=== PATIENT | male | born 1985 | race Caucasian/White ===

== ENCOUNTER 2017-03-11 20:03 | Emergency (ER) | payer MEDICAID ==
[2017-03-11 20:46] VITALS: BP 143/102
== END 2017-03-11 20:56 | disposition left against medical advice (07) ==
LOC: DL.ED 20:03
DX: Z53.21 Procedure and treatment not carried out due to patient leaving prior to being seen by health care provider (principal)

== ENCOUNTER 2017-03-12 14:31 | Emergency (ER) | payer MEDICAID ==
[2017-03-12 14:57] VITALS: BP 145/83
--- NOTE | 2017-03-12 15:21 | EDM.PDOC ---
ED HPI GENERAL MEDICAL PROBLEM - General Chief Complaint: General Stated Complaint: RASH, PAIN MID-SECTION Time Seen by Provider: 03/12/17 15:09 Source of Information: Reports: Patient History Limitations: Reports: No Limitations - History of Present Illness INITIAL COMMENTS - FREE TEXT/NARRATIVE: This 31 yo male patient reports to the ED with a 1 day history of increased upper abdominal pain, nausea/vomiting, and a diffuse rash on his extremities. The patient reports his symptoms started after eating pizza for breakfast yesterday morning. The patient reports he was seen for similar symptoms in June and was transferred to [facility] in [place]. The patient reports he was kept in the hospital for 4 days on IV medications. The patient reports he was told that the medication was a temporary fix. The patient reports he has been doing well until yesterday. The patient also reports that his throat is sore ( may be from vomiting). Onset Date: 03/11/17 Duration: Constant, Getting Worse Location: Reports: Abdomen Quality: Reports: Ache, Sharp, Stabbing Severity: Moderate Improves with: Reports: None Worsens with: Reports: None Associated Symptoms: Reports: No Other Symptoms - Related Data Allergies Allergy/AdvReac Type Severity Reaction Status Date / Time No Known Allergies Allergy Verified 03/12/17 14:36 Home Meds: Home Meds Ibuprofen [Motrin] 800 mg PO QID PRN 04/28/15 [History] Hydrocodone/Acetaminophen [Hydrocodon-Acetaminophen 5-325] 1 each PO QID PRN [History] Omeprazole 20 mg PO DAILY 11/23/15 [History] Sertraline [Zoloft] 25 mg PO DAILY 11/23/15 [History] Zolpidem [Ambien] 5 mg PO BEDTIME 11/23/15 [History] oxyCODONE 1 tab PO BID PRN 03/12/17 [History] Past Medical History - Past Health History Medical/Surgical History: Denies Medical/Surgical History Other Genitourinary History: "some kidney problem 7 months ago" Musculoskeletal History: Reports: Back Pain, Chronic, Fracture Other Musculoskeletal History: pinched nerves in neck Psychiatric History: Reports: Depression - Infectious Disease History Infectious Disease History: Reports: Chicken Pox - Past Surgical History GI Surgical History: Reports: Appendectomy Social & Family History - Family History Family Medical History: Unobtainable - Tobacco Use Smoking Status *Q: Current Every Day Smoker Years of Tobacco use: 15 Packs/Tins Daily: 0.5 Used Tobacco, but Quit: No Second Hand Smoke Exposure: Yes - Caffeine Use Caffeine Use: Reports: Coffee, Tea - Recreational Drug Use Recreational Drug Use: No Recreational Drug Type: Reports: Marijuana/Hashish ED ROS GENERAL - Review of Systems Review Of Systems: ROS reveals no pertinent complaints other than HPI. ED EXAM, GENERAL - Physical Exam Exam: See Below Exam Limited By: No Limitations General Appearance: Alert, WD/WN, Moderate Distress Eye Exam: Bilateral Eye: EOMI, Normal Inspection, PERRL Ears: Normal External Exam, Normal Canal, Hearing Grossly Normal, Normal TMs Nose: Normal Inspection, Normal Mucosa, No Blood Throat/Mouth: Normal Inspection, Normal Lips, Normal Teeth, Normal Gums, Normal Oropharynx, Normal Voice, No Airway Compromise Head: Atraumatic, Normocephalic Neck: Normal Inspection, Supple, Non-Tender, Full Range of Motion Respiratory/Chest: No Respiratory Distress, Lungs Clear, Normal Breath Sounds, No Accessory Muscle Use, Chest Non-Tender Cardiovascular: Normal Peripheral Pulses, Regular Rate, Rhythm, No Edema, No Gallop, No JVD, No Murmur, No Rub GI/Abdominal: Tender (epigastric pain) (Male) Exam: Deferred Rectal (Males) Exam: Deferred Back Exam: Normal Inspection, Full Range of Motion, NT Extremities: Normal Inspection, Normal Range of Motion, Non-Tender, Normal Capillary Refill, No Pedal Edema Neurological: Alert, Oriented, CN II-XII Intact, Normal Cognition, Normal Gait, Normal Reflexes, No Motor/Sensory Deficits Psychiatric: Normal Affect, Normal Mood Skin Exam: Warm, Dry, Intact, Normal Color, No Rash Lymphatic: No Adenopathy Course - Vital Signs Last Recorded V/S: Last Vital Signs Temp 36.2 C 03/12/17 14:57 Pulse 81 03/12/17 14:57 Resp 18 03/12/17 14:57 BP 145/83 H 03/12/17 14:57 Pulse Ox 100 03/12/17 14:57 - Orders/Labs/Meds Orders: Active Orders 24 hr Category Date Time Status CULTURE STREP A CONFIRMATION [] Stat Lab 03/12/17 14:46 Results STREP SCRN A RAPID W CULT CONF [] Stat Lab 03/12/17 14:46 Results Sodium Chloride 0.9% [Saline Flush] Med 03/12/17 15:37 Active 10 ml FLUSH ASDIRECTED PRN Saline Lock Insert [OM.PC] Routine Oth 03/12/17 15:37 Ordered Medication Orders Sodium Chloride (Saline Flush) 10 ml FLUSH ASDIRECTED PRN PRN Reason: Keep Vein Open Last Admin: 03/12/17 15:55 Dose: 10 ml Labs: Laboratory Tests 03/12/17 03/12/17 Range/Units 14:55 14:55 WBC 10.5 H (5.0-10.0) 10^3/uL RBC 5.37 (4.6-6.2) 10^6/uL Hgb 16.8 (14.0-18.0) g/dL Hct 50.1 (40.0-54.0) % MCV 93.3 (80-100) fL MCH 31.3 (27.0-34.0) pg MCHC 33.5 (33.0-35.0) g/dL Plt Count 247 (150-450) 10^3/uL Neut % (Auto) 73.2 (42.2-75.2) % Lymph % (Auto) 18.5 L (20.5-50.1) % [place] % (Auto) 6.4 (2-8) % Eos % (Auto) 1.5 (1.0-3.0) % Baso % (Auto) 0.4 (0.0-1.0) % Sodium 140 (135-145) mmol/L Potassium 4.2 (3.6-5.0) mmol/L Chloride 102 (101-111) mmol/L Carbon Dioxide 26.0 (21.0-31.0) mmol/L Anion Gap 16.2 BUN 12 (7-18) mg/dL Creatinine 1.0 (0.6-1.3) mg/dL Est Cr Clr Drug Dosing 90.44 mL/min Estimated GFR (MDRD) > 60 BUN/Creatinine Ratio 12.00 Glucose 100 (74-105) mg/dL Calcium 9.5 (8.4-10.2) mg/dl Total Bilirubin 1.1 H (0.2-1.0) mg/dL AST 32 (10-42) IU/L ALT 41 (10-60) IU/L Alkaline Phosphatase 70 (42-121) IU/L Total Protein 8.1 (6.7-8.2) g/dl Albumin 4.9 (3.2-5.5) g/dl Globulin 3.2 Albumin/Globulin Ratio 1.53 Meds: Medications Generic Name Dose Route Start Last Admin Trade Name Agustinq PRN Reason Stop Dose Admin Sodium Chloride 10 ml 03/12/17 15:37 03/12/17 15:55 Saline Flush FLUSH 10 ml ASDIRECTED PRN Administration Keep Vein Open Discontinued Medications Generic Name Dose Route Start Last Admin Trade Name Freq PRN Reason Stop Dose Admin Al Hydroxide/Mg Hydroxide 30 ml 03/12/17 16:01 03/12/17 16:05 Gi Cocktail PO 03/12/17 16:02 30 ml ONETIME ONE Administration Ondansetron HCl 4 mg 03/12/17 15:37 03/12/17 15:55 Zofran IV 03/12/17 15:38 4 mg ONETIME ONE Administration Pantoprazole Sodium 80 mg 03/12/17 15:37 03/12/17 15:54 Protonix Iv IVPUSH 03/12/17 15:38 80 mg .BOLUS ONE Administration Pantoprazole Sodium Confirm 03/12/17 15:58 Protonix Iv Administered 03/12/17 15:59 Dose 40 mg .ROUTE .[facility] ONE - Re-Assessments/Exams Free Text/Narrative Re-Assessment/Exam: 03/12/17 15:40 After reviewing the patient's records from [facility] in [place], the patient was diagnosed with esophagitis and was supposed to be on a PPI and Carafate, but the patient ran out of medications. The patient reports he is attempting to get a primary care provider, but could not get an appointment at this time. Departure - Departure Time of Disposition: 17:00 Disposition: Home, Self-Care 01 Condition: Fair Clinical Impression: Esophagitis - Discharge Information Instructions: Esophagitis Forms: ED Department Discharge Care Plan Goals: The patient was advised of the examination and lab results during the visit. The patient was given an IV dose of Zofran, an IV dose of Protonix and an oral GI cocktail. The patient was discharged with a script for 1) Omeprazole (20 mg) # 60 to take 1 by mouth 2 times per day for 30 days, 2) Carafate (1 gram) #28 to take 1 by mouth 4 times per day for 7 days and 3) Zofran (4 mg) #30 to take 1 by mouth every 6 hours as needed. If the patient has any additional symptoms or concerns, the patient should follow-up with his primary care facility or return to the emergency department. - My Orders Last 24 Hours: My Active Orders 03/12/17 14:46 CULTURE STREP A CONFIRMATION [RM] Stat STREP SCRN A RAPID W CULT CONF [RM] Stat 03/12/17 15:37 Sodium Chloride 0.9% [Saline Flush] 10 ml FLUSH ASDIRECTED PRN Saline Lock Insert [OM.PC] Routine - Assessment/Plan Last 24 Hours: My Active Orders 03/12/17 14:46 CULTURE STREP A CONFIRMATION [RM] Stat STREP SCRN A RAPID W CULT CONF [RM] Stat 03/12/17 15:37 Sodium Chloride 0.9% [Saline Flush] 10 ml FLUSH ASDIRECTED PRN Saline Lock Insert [OM.PC] Routine
[2017-03-12 15:23] LABS: CHLORIDE,CL 102 mmol/L (101-111); SODIUM,NA 140 mmol/L (135-145)
[2017-03-12] MEDS ORDERED: Sodium Chloride 0.9% 10 ML Syringe FLUSH PRN (15:37)
[2017-03-12] MEDS ORDERED: Ondansetron 4 MG/2 ML SDV IV ONE (15:37)
[2017-03-12] MEDS ORDERED: Pantoprazole 40 MG Vial IVPUSH ONE (15:37)
[2017-03-12] MEDS ORDERED: Pantoprazole 40 MG Vial ONE (15:58)
[2017-03-12] MEDS ORDERED: GI Cocktail Oral Solution 30 ML PO ONE (16:01)
== END 2017-03-12 17:10 | disposition home or self-care (01) ==
LOC: DL.ED 14:31
DX: K20.9 Esophagitis, unspecified (principal); F32.9 Major depressive disorder, single episode, unspecified; F17.210 Nicotine dependence, cigarettes, uncomplicated; Z90.49 Acquired absence of other specified parts of digestive tract; Z79.899 Other long term (current) drug therapy
CPT/HCPCS: 36415; 80053; 85025; 87081; 87430; 96374; 96375; 99283; A9270; C9113; J2405; J7050